=== PATIENT | female | born 1970 | race Caucasian/White ===

== ENCOUNTER 2024-02-26 19:11 | Emergency (ER) | payer OTHER ==
[~2024-02-26] VITALS: Ht 162.6 cm; Wt 72.6 kg
[~2024-02-26 19:11] MED LIST: ACET-8905 PO; CALC; PREN-385 PO; [UNRECOGNIZED DRUG - CODE] IV; iron
[2024-02-26 19:20] VITALS: BP 142/85; PULSE 75; RESP 22; TEMP 97.6; O2SAT 98
== END 2024-02-26 19:30 | disposition left against medical advice (07) ==
LOC: MED 19:11
DX: R07.9 Chest pain, unspecified (principal); R06.02 Shortness of breath; E11.9 Type 2 diabetes mellitus without complications; I10 Essential (primary) hypertension; Z79.4 Long term (current) use of insulin; Z79.899 Other long term (current) drug therapy
CPT/HCPCS: 93005; 99283